=== PATIENT | male | born 1985 | race American Indian/Alaskan Native ===

== ENCOUNTER 2020-09-12 03:04 | Emergency (ER) | payer SELFPAY ==
[2020-09-12] MEDS ORDERED: LORazepam 2 MG/ML VIAL IV ONE (03:16)
[2020-09-12] MEDS ORDERED: SODIUM CHLORIDE 0.9% 1000 ML 1,000 ML IV ONE (03:16)
[2020-09-12] MEDS ORDERED: ONDANSETRON 4 MG/2 ML INJ IV ONE (03:16)
[2020-09-12 04:40] LABS: Amphetamine Screen,Urine Negative; Benzodiazepines Screen,Urine Negative; Methadone Screen,Urine Negative; Opiate Screen,Urine Negative
--- NOTE | 2020-09-12 04:40 | Emergency Department Report ---
ED Palpitations HPI - General Chief Complaint: Arrhythmia/Palpitations Stated Complaint: PALPITATIONS Time Seen by Provider: 09/12/20 03:13 Source: EMS Mode of arrival: Stretcher Limitations: No Limitations - History of Present Illness Initial Comments: Patient is a 35-year-old F [place] male who is presenting with palpitations. He admits to smoking marijuana but believes it may have been laced. Patient is became very diaphoretic with palpitations and mild shortness of breath. Denies any cough cold congestion fevers or chills. Patient's significant other did speak with me on the phone and stated that the patient after work smokes marijuana with some friends and she is quite confident that he used cocaine. He is not a frequent cocaine user but does smoke marijuana frequently. - Related Data Home Medications Medication Instructions Recorded Confirmed Last Taken No Known Home Medications [No 09/12/20 09/12/20 Unknown Reported Home Medications] Allergies Allergy/AdvReac Type Severity Reaction Status Date / Time No Known Allergies Allergy Verified 09/12/20 03:21 ED Review of Systems ROS: Stated complaint: PALPITATIONS Other details as noted in HPI Comment: All other systems reviewed and negative ED Past Medical Hx - Social History Smoking Status: Current Every Day Smoker - Medications Home Medications: Home Medications Medication Instructions Recorded Confirmed Last Taken Type No Known Home Medications [No 09/12/20 09/12/20 Unknown History Reported Home Medications] ED Physical Exam - General Limitations: No Limitations General appearance: alert, anxious - Head Head exam: Present: atraumatic, normocephalic - Eye Eye exam: Present: normal appearance - ENT ENT exam: Present: mucous membranes moist - Neck Neck exam: Present: normal inspection - Respiratory Respiratory exam: Present: normal lung sounds bilaterally. Absent: respiratory distress, wheezes, rales, rhonchi - Cardiovascular Cardiovascular Exam: Present: normal rhythm, tachycardia, normal heart sounds. Absent: systolic murmur, diastolic murmur, rubs, gallop - GI/Abdominal GI/Abdominal exam: Present: soft, normal bowel sounds. Absent: distended, tenderness, guarding, rebound - Rectal Rectal exam: Present: deferred - Extremities Exam Extremities exam: Present: normal inspection - Back Exam Back exam: Present: normal inspection - Neurological Exam Neurological exam: Present: alert, oriented X3 - Psychiatric Psychiatric exam: Present: normal affect, normal mood - Skin Skin exam: Present: warm, dry, intact, normal color. Absent: rash ED Course Vital Signs 09/12/20 09/12/20 09/12/20 03:17 03:21 03:31 Temperature 98 F Pulse Rate 121 H 107 H 107 H Respiratory 18 19 Rate Blood Pressure 133/79 133/79 Blood Pressure 133/79 [Left] O2 Sat by Pulse 97 96 Oximetry 09/12/20 04:01 Temperature Pulse Rate 93 H Respiratory 18 Rate Blood Pressure 111/56 Blood Pressure [Left] O2 Sat by Pulse 94 Oximetry ED Medical Decision Making - Lab Data Lab Results 09/12/20 Range/Units 04:22 Urine Opiates Screen Negative Urine Methadone Screen Negative Ur Barbiturates Screen Negative Ur Phencyclidine Scrn Negative Ur Amphetamines Screen Negative U Benzodiazepines Scrn Negative cocaine and Cannabis positive - EKG Data -: EKG Interpreted by Me EKG shows normal: sinus rhythm, axis, intervals, QRS complexes, ST-T waves Rate: tachycardia (110) - Medical Decision Making Patient hydrated given Ativan to calm his anxiety. Heart rate did decrease. Patient stable for discharge Critical care attestation.: If time is entered above; I have spent that time in minutes in the direct care of this critically ill patient, excluding procedure time. ED Disposition Clinical Impression: Palpitations, Cocaine intoxication, Cannabis abuse Disposition: DC-01 TO HOME OR SELFCARE Is pt being admited?: No Does the pt Need Aspirin: No Condition: Stable Instructions: Palpitations, [id number] Referrals: ANISH ORO MD [Referring] - 3-5 Days Time of Disposition: 05:00
[2020-09-12 04:59] LABS: Cannabinoid Screen,Urine Positive; Cocaine Screen,Urine Positive
[2020-09-12 05:25] VITALS: BP 117/76
--- NOTE | 2020-09-14 10:36 | Electrocardiograph Report ---
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
== END 2020-09-12 05:25 | disposition home or self-care (01) ==
LOC: ED 03:04
DX: R00.2 Palpitations (principal); F14.129 Cocaine abuse with intoxication, unspecified; F17.200 Nicotine dependence, unspecified, uncomplicated; Z79.899 Other long term (current) drug therapy
CPT/HCPCS: 80307; 93005; 96361; 96374; 96375; 99284; J2060; J2405; J7030